=== PATIENT | male | born 1955 | race Caucasian/White ===

== ENCOUNTER 2022-06-27 20:14 | Emergency (ER) | payer MEDICARE, OTHER ==
[~2022-06-27] VITALS: Ht 180.3 cm; Wt 77.1 kg
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
--- NOTE | 2022-06-27 20:37 | NUR ---
DION [id number]
--- NOTE | 2022-06-27 20:43 | NUR ---
[employer] AT BEDSIDE
--- NOTE | 2022-06-27 20:43 | NUR ---
SEEN BY DR RODRIGUEZ AT BEDSIDE
[2022-06-27] MEDS ORDERED: ACETAMINOPHEN ES 500 MG TABLET PO ONE (21:00)
--- NOTE | 2022-06-27 21:06 | NUR ---
BROUGHT TO CT DEPT
[2022-06-27] MEDS ORDERED: ACETAMINOPHEN ES 500 MG TABLET ONE (21:13)
[2022-06-27] MEDS ORDERED: CYCL10TA9 PO (22:08)
--- NOTE | 2022-06-27 22:08 | NUR ---
Patient discharged to home in stable condition. Written and verbal after care instructions given. Patient verbalizes understanding of instruction. Pt ambulatory with a steady gait
[2022-06-27 22:09] VITALS: BP 155/89
[2022-06-27] MEDS ORDERED: CYCLOBENZAPRINE 10 MG TABLET ONE (22:15)
--- NOTE | 2022-06-27 22:18 | NUR ---
FLEXIRIL 10MG WAS GIVEN PO. CHART WAS DISCHARGED PRIOR ADMIN.
[2022-06-27] MEDS ORDERED: CYCLOBENZAPRINE 10 MG TABLET PO ONE (22:30)
== END 2022-06-27 22:09 | disposition home or self-care (01) ==
LOC: ER 20:25
DX: R51.9 Headache, unspecified (principal); M54.2 Cervicalgia; M25.561 Pain in right knee; I10 Essential (primary) hypertension; Z60.2 Problems related to living alone; V47.5XXA Car driver injured in collision with fixed or stationary object in traffic accident, initial encounter; Y93.89 Activity, other specified; Y92.89 Other specified places as the place of occurrence of the external cause; Y99.8 Other external cause status
CPT/HCPCS: 70450-TC; 72125-TC; 73564-TC